=== PATIENT | female | born 1960 | race Caucasian/White ===

== ENCOUNTER 2021-08-18 11:46 | Emergency (ER) | payer MEDICAID ==
[~2021-08-18] VITALS: Ht 162.6 cm; Wt 72.7 kg
[2021-08-18 11:59] VITALS: BP 126/92
[2021-08-18] MEDS ORDERED: PRED20TA PO (13:44)
[2021-08-18] MEDS ORDERED: ALBU8HFA PO (13:44)
== END 2021-08-18 15:23 | disposition home or self-care (01) ==
LOC: ER 11:47
DX: J22 Unspecified acute lower respiratory infection (principal); Z20.822 Contact with and (suspected) exposure to COVID-19; R05.9 Cough, unspecified; R06.02 Shortness of breath; Z88.8 Allergy status to other drugs, medicaments and biological substances
CPT/HCPCS: 71045; 87635; 99284; C9803